=== PATIENT | male | born 1980 | race Two or more races ===

== ENCOUNTER 2023-01-06 17:07 | Emergency (ER) | payer MEDICAID, OTHER ==
[~2023-01-06] VITALS: Ht 177.8 cm; Wt 95.3 kg
[2023-01-06 17:40] VITALS: BP 144/90; PULSE 84; RESP 16; O2SAT 98
[2023-01-06] MEDS ORDERED: IBUPROFEN 800 MG TAB PO ONE (19:45)
[2023-01-06] MEDS ORDERED: IBUP-1456 PO (21:07)
[2023-01-06] MEDS ORDERED: CYCL-837 PO (21:07)
== END 2023-01-06 21:22 | disposition home or self-care (01) ==
LOC: ER 17:07
DX: M54.2 Cervicalgia (principal); R51.9 Headache, unspecified; R42 Dizziness and giddiness; V43.62XA Car passenger injured in collision with other type car in traffic accident, initial encounter; Y93.89 Activity, other specified; Y92.89 Other specified places as the place of occurrence of the external cause; Y99.8 Other external cause status
CPT/HCPCS: 70450; 72125